=== PATIENT | female | born 1950 | race Caucasian/White ===

== ENCOUNTER 2017-12-14 10:14 | Outpatient (CLI) | payer MEDICARE, OTHER ==
--- NOTE | 2017-12-14 12:01 | MMO ---
BILATERAL SCREENING MAMMOGRAMS: DATE: 12/14/17. This study is interpreted with the assistance of computer-aided detection. COMPARISON: 07/10/16 and 07/13/12. FINDINGS: There is a heterogeneously dense parenchymal pattern, which may lower the sensitivity of mammography. No dominant mass, suspicious grouping of microcalcifications, or areas of architectural distortion are seen in either breast. IMPRESSION: BI-RADS category 1, negative mammograms. Routine mammographic screening is recommended. BIRADS 1: Negative Routine annual screening mammography (for women over age 40) POS: [facility]
== END 2017-12-14 10:15 | disposition home or self-care (01) ==
LOC: SCSMAMMO 10:14
PROVIDERS: ATTEND Family Medicine
DX: Z12.31 Encounter for screening mammogram for malignant neoplasm of breast (principal)
CPT/HCPCS: 77067

== ENCOUNTER 2019-03-18 10:55 | Outpatient (CLI) | payer MEDICARE, OTHER ==
--- NOTE | 2019-03-18 11:24 | RAD ---
LEFT FOOT 3 VIEWS: HISTORY: Left lateral side foot pain. FINDINGS/IMPRESSION: No fracture, dislocation, or bone destruction is seen. Small calcaneal spurs are present. POS: [facility]
== END 2019-03-18 10:56 | disposition home or self-care (01) ==
LOC: BICRAD 10:55
PROVIDERS: ATTEND Physician Assistant
DX: M79.672 Pain in left foot (principal); M77.32 Calcaneal spur, left foot

== ENCOUNTER 2019-07-25 08:43 | Outpatient (CLI) | payer MEDICARE, OTHER ==
--- NOTE | 2019-07-25 09:18 | MMO ---
Right Breast MAMMO Unilat Diag DDI RT+LOR. CLINICAL HISTORY: Patient is 68 years old and is seen for diagnostic exam. The patient has no family history of breast cancer. The patient has no personal history of cancer. VIEWS: The views performed were: right craniocaudal with tomosynthesis; right mediolateral oblique with tomosynthesis; and right mediolateral with tomosynthesis. FILMS COMPARED: The present examination has been compared to prior imaging studies performed at [facility] on 07/12/2019, at [facility] on 12/14/2017, at [facility] on 07/13/2012, and at [facility] on 07/10/2016. This study has been interpreted with the assistance of computer-aided detection. MAMMOGRAM FINDINGS: The breast is heterogeneously dense, which could obscure a lesion on mammography. Additional views were performed. The previously seen abnormality is not definitely seen on the current study. There are no suspicious masses, suspicious calcifications, or new areas of architectural distortion. IMPRESSION: THERE IS NO MAMMOGRAPHIC EVIDENCE OF MALIGNANCY. A ROUTINE FOLLOW-UP MAMMOGRAM IN 1 YEAR IS RECOMMENDED. THE RESULTS OF THIS EXAM WERE SENT TO THE PATIENT. ACR BI-RADS Category 2 - Benign finding MAMMOGRAPHY NOTE: 1. A negative mammogram report should not delay a biopsy if a dominant of clinically suspicious mass is present. 2. Approximately 10% to 15% of breast cancers are not detected by mammography. 3. Adenosis and dense breasts may obscure an underlying neoplasm. Reported by: CHEMA CAMPBELL MD Electonically Signed: [id number]
== END 2019-07-25 08:44 | disposition home or self-care (01) ==
LOC: BICMAMMO 08:43
PROVIDERS: ATTEND Obstetrics & Gynecology
DX: N63.10 Unspecified lump in the right breast, unspecified quadrant (principal)
CPT/HCPCS: 77065; G0279

== ENCOUNTER 2023-12-31 11:18 | Outpatient (CLI) | payer MEDICARE, OTHER | END 2023-12-31 11:19 | disposition home or self-care (01) | LOC: SCSRAD 11:18 | PROVIDERS: ATTEND Nurse Practitioner Family | DX: R39.9 Unspecified symptoms and signs involving the genitourinary system (principal) | CPT/HCPCS: 74018 ==

== ENCOUNTER 2025-06-29 12:03 | Outpatient (CLI) | payer MEDICARE, OTHER | END 2025-06-29 12:04 | disposition home or self-care (01) | LOC: SCSRAD 12:03 | PROVIDERS: ATTEND Student in an Organized Health Care Education/Training Program | DX: M54.50 Low back pain, unspecified (principal); G89.29 Other chronic pain; M41.9 Scoliosis, unspecified; M43.07 Spondylolysis, lumbosacral region; M47.816 Spondylosis without myelopathy or radiculopathy, lumbar region; M48.061 Spinal stenosis, lumbar region without neurogenic claudication; M51.86 Other intervertebral disc disorders, lumbar region; M51.87 Other intervertebral disc disorders, lumbosacral region | CPT/HCPCS: 72110 ==